=== PATIENT | female | born 1995 ===

== ENCOUNTER 2017-02-22 09:19 | Emergency (ER) | payer OTHER ==
[2017-02-22 09:24] VITALS: RESP 18
[2017-02-22 09:30] VITALS: BMI 19.5
--- NOTE | 2017-02-22 10:22 | RAD ---
Right hand three views History: Pain. Comparison: None available. Findings: Prominent soft tissue swelling at the level of the 2nd digit. Punctate radiopaque density at the ulnar aspect the 2nd PIP joint space, nonspecific. Clinical correlation to site of pain. Question minimal posterior subluxation of the 5th distal phalanx in relationship to the middle phalanx on the lateral view, clinical correlation. Negative ulnar variance. Impression: Prominent soft tissue swelling at the level of the 2nd digit. Punctate radiopaque density at the ulnar aspect the 2nd PIP joint space, nonspecific. Clinical correlation to site of pain. Question minimal posterior subluxation of the 5th distal phalanx in relationship to the middle phalanx on the lateral view, clinical correlation. Negative ulnar variance. If pain persists, consider MRI.
[2017-02-22 10:49] LABS: RBC URINE 1 /hpf (0-3); URINE BACTERIA RARE (<OCC); URINE BILIRUBIN NEGATIVE (NEGATIVE); URINE BLOOD 1+ (NEGATIVE); URINE COLOR Yellow (YELLOW); URINE GLUCOSE (UA) NORMAL (Normal); URINE KETONE NEGATIVE (NEGATIVE); URINE LEUKOCYTE ESTERASE 2+ Leu/uL (Negative); URINE PROTEIN NEGATIVE (NEGATIVE); URINE UROBILINOGEN NORMAL mg/dL (0.2-1.0); WBC URINE 4 /hpf (0-5)
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
[2017-02-22 12:57] VITALS: BP 110/65; PULSE 75; TEMP 98.2
[2017-02-22 13:00] VITALS: O2SAT 98
== END 2017-02-22 13:11 | disposition home or self-care (01) ==
LOC: SUPCPDRO 09:19 → EDBD 09:19 → C.ER 09:19
DX: Z04.41 Encounter for examination and observation following alleged adult rape (principal); T14.8XXA Other injury of unspecified body region, initial encounter; Y04.0XXA Assault by unarmed brawl or fight, initial encounter